=== PATIENT | male | born 1965 | race Native Hawaiian/Other Pacific Islander ===

== ENCOUNTER 2021-11-24 11:30 | Inpatient (IN) | payer OTHER ==
[~2021-11-24] VITALS: Ht 193 cm; Wt 86.0 kg
[2021-11-24] VITALS (13 sets, daily range): BP systolic 98–152; BP diastolic 62–93; TEMP 97.9–102.8; Ht 193 cm; Wt 86.0 kg
[2021-11-24 12:18] LABS: PLATELET COUNT 126 K/uL (142-355)
[2021-11-24 12:22] LABS: POTASSIUM 3.7 mmol/L (3.6-5.2)
[2021-11-24 12:49] LABS: PARTIAL THROMBOPLASTIN TIME 26.1 SECONDS (24.5-33.6)
[2021-11-25] VITALS: BP 101/62; TEMP 97.9
[2021-11-25 04:06] VITALS: BP 99/65; TEMP 97.5
[2021-11-25 06:33] LABS: PLATELET COUNT 134 K/uL (142-355)
[2021-11-25 06:55] LABS: POTASSIUM 4.7 mmol/L (3.6-5.2)
[2021-11-25 08:00] VITALS: BP 106/64; TEMP 98.1
[2021-11-25 12:00] VITALS: BP 100/62; TEMP 98.4
[2021-11-25 16:00] VITALS: BP 110/69; TEMP 98.1
[2021-11-25 20:00] VITALS: BP 109/71; TEMP 97.9
[2021-11-26] VITALS: BP 104/65; TEMP 97.7
[2021-11-26 04:00] VITALS: BP 99/67; TEMP 97.5
[2021-11-26 08:00] VITALS: BP 115/71; TEMP 97.8
[2021-11-26 08:01] LABS: PLATELET COUNT 151 K/uL (142-355)
[2021-11-26 08:15] LABS: POTASSIUM 4.5 mmol/L (3.6-5.2)
[2021-11-26 12:00] VITALS: BP 115/71; TEMP 97.8
[2021-11-26 16:00] VITALS: BP 112/69; TEMP 98
[2021-11-26 20:00] VITALS: BP 119/68; TEMP 97.5
[2021-11-27 00:13] VITALS: BP 103/63; TEMP 97.5
[2021-11-27 04:00] VITALS: BP 99/65; TEMP 97.6
[2021-11-27 05:39] LABS: POTASSIUM 4.4 mmol/L (3.6-5.2)
[2021-11-27 05:49] LABS: PLATELET COUNT 184 K/uL (142-355)
[2021-11-27 08:00] VITALS: BP 118/71; TEMP 97.4
[2021-11-27 12:00] VITALS: BP 113/75; TEMP 97.3
[2021-11-27 16:00] VITALS: BP 104/67; TEMP 97.8
[2021-11-27 20:17] VITALS: BP 110/69; TEMP 98
[2021-11-28 00:07] VITALS: BP 113/76; TEMP 97.6
[2021-11-28 04:25] VITALS: BP 108/68; TEMP 97.5
[2021-11-28 05:30] LABS: PLATELET COUNT 205 K/uL (142-355)
[2021-11-28 08:00] VITALS: BP 113/75; TEMP 98
[2021-11-28 12:00] VITALS: BP 120/75; TEMP 97.7
[2021-11-28 16:00] VITALS: BP 111/70; TEMP 97.5
[2021-11-28 20:00] VITALS: BP 116/72; TEMP 97.7
[2021-11-29] VITALS: BP 117/79; TEMP 97.9
[2021-11-29 04:00] VITALS: BP 115/76; TEMP 97.7
[2021-11-29 04:42] LABS: PLATELET COUNT 220 K/uL (142-355)
[2021-11-29 04:56] LABS: POTASSIUM 4.3 mmol/L (3.6-5.2)
[2021-11-29 08:00] VITALS: BP 124/74; TEMP 97.8
[2021-11-29 12:00] VITALS: BP 135/82; TEMP 97.3
== END 2021-11-29 15:10 | disposition home or self-care (01) | DRG 177 ==
LOC: ED 11:30 → MED/SURG 16:41
PROVIDERS: Family Medicine; Internal Medicine Endocrinology, Diabetes & Metabolism; ADMIT Internal Medicine; ATTEND Internal Medicine
DX: U07.1 COVID-19 (principal); J12.82 Pneumonia due to coronavirus disease 2019; J96.01 Acute respiratory failure with hypoxia; I21.A1 Myocardial infarction type 2
CPT/HCPCS: 36415; 36600; 80053; 82550; 82805; 84484; 85027; 85379; 85610; 85730; 87040; 87502; 87635; 93005; 94760; 99284; J0248; J0456; J1100; J1650; Q9963; U0003

== ENCOUNTER 2022-09-09 09:15 | Emergency (ER) | payer OTHER ==
[~2022-09-09] VITALS: Ht 193 cm; Wt 95.3 kg
[2022-09-09 09:19] VITALS: TEMP 98.7
[2022-09-09 09:52] LABS: PLATELET COUNT 322 K/uL (142-355)
[2022-09-09 11:29] VITALS: BP 112/74
== END 2022-09-09 11:29 | disposition home or self-care (01) ==
LOC: ED 09:15
PROVIDERS: Emergency Medicine Emergency Medical Services
DX: R11.2 Nausea with vomiting, unspecified (principal); H65.191 Other acute nonsuppurative otitis media, right ear; F17.210 Nicotine dependence, cigarettes, uncomplicated; Z20.822 Contact with and (suspected) exposure to COVID-19
CPT/HCPCS: 36415; 80053; 83735; 84484; 85027; 87502; 87635; 87651; 93005; 96360; 96365; 96375; 99284; J0696; J3490; U0003

== ENCOUNTER 2022-12-24 11:02 | Outpatient (CLI) | payer OTHER | END 2022-12-24 22:02 | disposition home or self-care (01) | LOC: US 11:02 | PROVIDERS: ATTEND Nurse Practitioner | DX: R42 Dizziness and giddiness (principal) ==

== ENCOUNTER 2023-02-26 09:14 | Emergency (ER) | payer OTHER ==
[~2023-02-26] VITALS: Ht 193 cm; Wt 90.7 kg
[2023-02-26 09:45] LABS: PLATELET COUNT 202 K/uL (142-355)
[2023-02-26 09:53] LABS: POTASSIUM 4.1 mmol/L (3.6-5.2)
[2023-02-26 12:25] VITALS: BP 129/75; TEMP 98.6
== END 2023-02-26 12:30 | disposition home or self-care (01) ==
LOC: ED 09:14
PROVIDERS: Emergency Medicine Emergency Medical Services
DX: N20.1 Calculus of ureter (principal)
CPT/HCPCS: 36415; 80053; 81002; 85027; 96361; 96374; 99284; J1885